=== PATIENT | female | born 1975 | race Caucasian/White ===

== ENCOUNTER 2019-04-07 11:06 | Emergency (ER) | payer OTHER, MEDICAID, SELFPAY ==
[2019-04-07 11:27] VITALS: BP 138/78; PULSE 104; RESP 22; TEMP 36.1; O2SAT 98; BMI 66.2
[2019-04-07 14:06] LABS: Add Manual Diff / Slide Review NO; Basophils Absolute Auto 0 /uL (0-100); Basophils Percent Auto 0.2 % (0-2); Eosinophils Absolute Auto 100 /uL (0-450); Eosinophils Percent Auto 0.9 % (2-4); Hematocrit 41.4 % (36-46); Hemoglobin 13.4 g/dL (12.0-16.0); Lymphocytes Absolute Auto 3200 /uL (1100-4500); Lymphocytes Percent Auto 27.9 % (25-40); Mean Corpuscular HGB Conc 32.4 % (30-36); Mean Corpuscular Hemoglobin 27.8 PG (26-34); Mean Corpuscular Volume 85.7 fL (80-100); Monocytes Absolute Auto 600 /uL (0-900); Monocytes Percent Auto 4.9 % (3-14); Neutrophils Absolute Auto 7500 /uL (1500-7000); Neutrophils Percent Auto 66.1 % (50-75); Platelet Count 347 X10^3/uL (150-400); Red Blood Cell Count 4.83 X10^6/uL (4.0-5.2); Red Cell Distribution Width 14.8 % (11.6-14.8); White Blood Cell Count 11.3 X10^3/uL (4.5-11.0)
--- NOTE | 2019-04-07 14:06 | ED.SKABFB ---
HPI - Skin/Abscess/Foreign Bdy <ABI Xiong - Last Filed: 04/07/19 22:05> General Chief complaint: Skin/Abscess/Foreign Body Stated complaint: Swollen cheek/hard lump Rt side Time Seen by Provider: 04/07/19 13:40 Source: patient Mode of arrival: ambulatory Limitations: no limitations History of Present Illness HPI narrative: The patient is a 43-year-old female nonsmoker with history of morbid obesity, hypertension and fibromyalgia presents chief complaint of right-sided facial pain. She states it has been going on for a week and she notes swelling on the right side of her mandible as well as just distal to her right ear. She denies any fevers nausea vomiting or diarrhea. She states that there is are swollen and painful. She states it feels like she has cotton underneath her skin. She does have a history of dental infections. She complains of transient ear pain, but states she has chronic sinus issues. She has taken [id number] measures for the pain including Tylenol and ibuprofen. Related Data Previous Rx's Medication Instructions Recorded ketorolac 10 mg PO Q4-6H PRN 2 Days #8 tab 04/07/19 penicillin V potassium 500 mg PO QID #40 tab 04/07/19 Allergies Allergy/AdvReac Type Severity Reaction Status Date / Time azithromycin Allergy Severe Anaphylaxis Verified 04/07/19 11:33 Review of Systems <ROBERT Xiong - Last Filed: 04/07/19 22:05> Review of Systems GENERAL: Denies chills, fatigue, malaise, fever, sweats. HEENT: See HPI RESPIRATORY: Denies dyspnea, cough, wheezing, hemoptysis, sputum. CARDIOVASCULAR: Denies chest pain, palpitations, orthopnea, edema, GASTROINTESTINAL: Denies nausea, vomiting, abdominal pain, diarrhea, constipation, melena. : Denies dysuria, frequency, incontinence, hematuria, urinary retention. MUSCULOSKELETAL: denies weakness, joint pain, or bony pain SKIN: See HPI NEUROLOGIC: Denies weakness, headache, numbness, change in speech, confusion, seizures, incoordination. PSYCHIATRIC: No concerning psychosocial issues. 12 point review of systems is negative except for those stated above PFSH <ABI Xiong - Last Filed: 04/07/19 22:05> Medical History Fibromyalgia (Acute) Hypertension (Acute) Morbidly obese (Acute) Social History Smoking Status: Never smoker Social History Smoking Status: Never smoker Exam <ABI Xiong - Last Filed: 04/07/19 22:05> Narrative Exam Narrative: GENERAL: Morbidly obese female sitting on stretcher HEAD: Atraumatic. Normocephalic. No temporal or scalp tenderness. EYES: Pupils equal round and reactive. Extraocular motions intact. No scleral icterus. No injection or drainage. ENT: Nose without bleeding, purulent drainage or septal hematoma. Throat without erythema, tonsillar hypertrophy or exudate. Uvula midline. Airway patent. Bilateral TMs pearly lindsey. No erythema over right mastoid. No pain to palpation right mastoid. Swelling erythema noted lateral come right lower jaw with pain to palpation. Multiple broken teeth noted. NECK: Trachea midline. No JVD or lymphadenopathy. Supple, nontender, no meningeal signs. Submandibular swelling noted right side. Approximately 3 cm x 4 cm. Slight overlying erythema. 2 x 1 cm area of swelling noted distal to right ear. Slight overlying erythema. CARDIOVASCULAR: Regular rate and rhythm without murmurs, gallops, or rubs. RESPIRATORY: Clear to auscultation. Breath sounds equal bilaterally. No wheezes, rales, or rhonchi. No cough. No increased respiratory effort. GASTROINTESTINAL: Abdomen soft, non-tender, nondistended. No hepato-splenomegaly, or palpable masses. No guarding. EXTREMITIES: No clubbing, cyanosis, or edema. No joint tenderness, effusion, or edema noted. BACK: Nontender without deformity or crepitance. No flank tenderness. NEURO: AOx3. SKIN: Slight erythema overlying swelling as noted above. No obvious rash or significant erythema Initial Vital Signs Initial Vital Signs: Vital Signs Temperature 97.0 F L 04/07/19 11:27 Pulse Rate 104 H 04/07/19 11:27 Respiratory Rate 22 04/07/19 11:27 Blood Pressure 138/78 04/07/19 11:27 Pulse Oximetry 98 04/07/19 11:27 <Tyra Magaña DO - Last Filed: 04/08/19 07:31> Initial Vital Signs Initial Vital Signs: Vital Signs Temperature 97.0 F L 04/07/19 11:27 Pulse Rate 104 H 04/07/19 11:27 Respiratory Rate 22 04/07/19 11:27 Blood Pressure 138/78 04/07/19 11:27 Pulse Oximetry 98 04/07/19 11:27 Course <JEANMARIE XiongP-BC - Last Filed: 04/07/19 22:05> Orders Ordered: Discontinued Medications Sodium Chloride (Normal Saline 0.9%) 1,000 mls @ 1,000 mls/hr IV BOLUS ONE Stop: 04/07/19 15:51 Last Infusion: 04/07/19 16:10 Dose: 0 mls/hr Admin: 04/07/19 14:56 Dose: 1,000 mls/hr Ketorolac Tromethamine (Toradol) 30 mg IV NOW ONE Stop: 04/07/19 16:06 Last Admin: 04/07/19 16:12 Dose: 30 mg Ondansetron HCl (Zofran) 4 mg IV NOW ONE Stop: 04/07/19 14:53 Last Admin: 04/07/19 14:56 Dose: 4 mg Vital Signs - 8 hr 04/07/19 16:38 Pulse Rate 91 H Respiratory Rate 20 Blood Pressure [Right Arm] 141/81 H Pulse Oximetry 99 <Tyra Magaña DO - Last Filed: 04/08/19 07:31> Orders Ordered: Discontinued Medications Sodium Chloride (Normal Saline 0.9%) 1,000 mls @ 1,000 mls/hr IV BOLUS ONE Stop: 04/07/19 15:51 Last Infusion: 04/07/19 16:10 Dose: 0 mls/hr Admin: 04/07/19 14:56 Dose: 1,000 mls/hr Ketorolac Tromethamine (Toradol) 30 mg IV NOW ONE Stop: 04/07/19 16:06 Last Admin: 04/07/19 16:12 Dose: 30 mg Ondansetron HCl (Zofran) 4 mg IV NOW ONE Stop: 04/07/19 14:53 Last Admin: 04/07/19 14:56 Dose: 4 mg Vital Signs - 8 hr 04/07/19 16:38 Pulse Rate 91 H Respiratory Rate 20 Blood Pressure [Right Arm] 141/81 H Pulse Oximetry 99 MDM - Skin/Abscess/Foreign Bdy <Tyra Chambers, PROGRAM MANAGEMENT PROFESSIONAL-BC - Last Filed: 04/07/19 22:05> Lab Data Result diagrams: 04/07/19 13:50 04/07/19 13:50 Lab Results 04/07/19 04/07/19 Range/Units 13:50 13:50 WBC 11.3 H (4.5-11.0) X10^3/uL RBC 4.83 (4.0-5.2) X10^6/uL Hgb 13.4 (12.0-16.0) g/dL Hct 41.4 (36-46) % MCV 85.7 (80-100) fL MCH 27.8 (26-34) PG MCHC 32.4 (30-36) % RDW 14.8 (11.6-14.8) % Plt Count 347 (150-400) X10^3/uL Neut % (Auto) 66.1 (50-75) % Lymph % (Auto) 27.9 (25-40) % [place] % (Auto) 4.9 (3-14) % Eos % (Auto) 0.9 L (2-4) % Baso % (Auto) 0.2 (0-2) % Neut # (Auto) 7500 H (1978-6367) /uL Lymph # (Auto) 3200 (6075-9995) /uL [place] # (Auto) 600 (0-900) /uL Eos # (Auto) 100 (0-450) /uL Baso # (Auto) 0 (0-100) /uL Sodium 134 L (137-145) mmol/L Potassium 4.0 (3.4-5.1) mmol/L Chloride 100 (98-107) mmol/L Carbon Dioxide 20 L (22-32) mmol/L BUN 10 (7-17) mg/dL Creatinine 0.60 (0.52-1.04) mg/dL Estimated GFR > 60.0 (>60) mL/min BUN/Creatinine Ratio 16.7 (6-22) Glucose 292 H (70-100) mg/dL Calcium 9.1 (8.4-10.2) mg/dL Point of Care Testing Test Results Negative Urine Dip Bedside Urine Glucose 250 mg/dl Bedside Urine Bilirubin - Negative Bedside Urine Ketone +/- 5 Urine Specific [place] 1.030 Bedside Urine Occult Blood +/- Bedside Urine pH 5.5 Bedside Urine Protein +/- 15 Bedside Urine Urobilinogen - Negative Bedside Urine Nitrite - Negative Bedside Urine Leukocytes - Negative Esterase Imaging Data CT soft tissue of neck: Radiologist's impression: [address] [address] [address] Scan Report Signed Patient: Adali MulliganIAR#: [id number] : 1975Acct:[id number] Age/Sex: 43 / FDate of Service: 04/07/19 Loc: ED Accession Number: [id number] Procedure: CT soft tissue neck w con Ordering Provider: Tyra Chambers-WENCESLAO PROCEDURE: CT SOFT TISSUE NECK W CON INDICATIONS: swelling, pain right face and mandible TECHNIQUE: After the administration of intravenous contrast, 3.0 mm axial sections acquired from the sella to the aortic arch. Additional oblique axial 3.0 mm sections acquired through the pharynx. 3 mm thick coronal and sagittal reformats were generated. For radiation dose reduction, the following was used: automated exposure control. COMPARISON: None. FINDINGS: Image quality: Excellent. Lymph nodes: No enlarged lymph nodes seen throughout the neck. Vessels: Visualized vasculature appears patent. Neck spaces: The oropharynx, nasopharynx, and pharynx demonstrate no mucosal lesions. The vocal cords, false vocal cords, pyriform sinuses, epiglottis, vallecula, and tongue base all appear normal. Extramucosal spaces appear unremarkable. Glands: Fatty appearance of the parotid glands bilaterally. The submandibular glands appear normal. Thyroid gland is grossly unremarkable. Miscellaneous: Visualized brain and orbits appear normal. Lung apices appear clear. There is asymmetric right perimandibular soft tissue swelling. The adjacent bone and teeth appear grossly intact. No discrete abscess Bones: No suspicious bony lesions. Bilateral maxillary sinus disease. IMPRESSION: Right perimandibular soft tissue swelling, nonspecific etiology. Recommend clinical correlation. No discrete abscess identified Dictated by: Wesley Roberts M.D. on 04/07/2019 at 15:27 Approved by: Wesley Roberts M.D. on 04/07/2019 at 15:32 [facility] Narrative Medical decision making narrative: The patient is a 43-year-old female who presents with swelling on the right side of the face. Her CT scan was inconclusive. She does not have an elevated white blood cell count is afebrile. Thus given her exam I will treat her for dental infection as she treat with penicillin. I gave her Toradol in the emergency department as well as a prescription of Toradol. Discussed not taking any further anti-inflammatories such as Aleve ibuprofen etc. Encouraged follow-up with her primary care provider as well as dentist. Patient has no questions or concerns upon discharge. Discussed return precautions of difficulty breathing, and we keep down fluids etc. <Tyra Magaña, DO - Last Filed: 04/08/19 07:31> Lab Data Lab Results 04/07/19 04/07/19 Range/Units 13:50 13:50 WBC 11.3 H (4.5-11.0) X10^3/uL RBC 4.83 (4.0-5.2) X10^6/uL Hgb 13.4 (12.0-16.0) g/dL Hct 41.4 (36-46) % MCV 85.7 (80-100) fL MCH 27.8 (26-34) PG MCHC 32.4 (30-36) % RDW 14.8 (11.6-14.8) % Plt Count 347 (150-400) X10^3/uL Neut % (Auto) 66.1 (50-75) % Lymph % (Auto) 27.9 (25-40) % [place] % (Auto) 4.9 (3-14) % Eos % (Auto) 0.9 L (2-4) % Baso % (Auto) 0.2 (0-2) % Neut # (Auto) 7500 H (9335-1382) /uL Lymph # (Auto) 3200 (9840-0482) /uL [place] # (Auto) 600 (0-900) /uL Eos # (Auto) 100 (0-450) /uL Baso # (Auto) 0 (0-100) /uL Sodium 134 L (137-145) mmol/L Potassium 4.0 (3.4-5.1) mmol/L Chloride 100 (98-107) mmol/L Carbon Dioxide 20 L (22-32) mmol/L BUN 10 (7-17) mg/dL Creatinine 0.60 (0.52-1.04) mg/dL Estimated GFR > 60.0 (>60) mL/min BUN/Creatinine Ratio 16.7 (6-22) Glucose 292 H (70-100) mg/dL Calcium 9.1 (8.4-10.2) mg/dL Point of Care Testing Test Results Negative Urine Dip Bedside Urine Glucose 250 mg/dl Bedside Urine Bilirubin - Negative Bedside Urine Ketone +/- 5 Urine Specific [place] 1.030 Bedside Urine Occult Blood +/- Bedside Urine pH 5.5 Bedside Urine Protein +/- 15 Bedside Urine Urobilinogen - Negative Bedside Urine Nitrite - Negative Bedside Urine Leukocytes - Negative Esterase Discharge Plan Departure Patient Disposition: Home Clinical Impression: Dental infection Discharge Date/Time: 04/07/19 16:50 Interventions: ED Discharge Assessment Last Done: 04/07/19 16:50 Instructions: Tooth Abscess, DI for Dental Pain Activity Restrictions/Additional Instructions: Your CT scan was nonspecific and showed generalized swelling. I am treating her for dental infection given her exam. I have also given you prescription for Toradol for pain. Do not combine this with ibuprofen Aleve or any other NSAIDs. Please follow up with her primary care provider in the next few days. Please come back to emergency department for any acute concerns such as chest pain shortness of breath concern of heart attack or stroke. Prescriptions: New penicillin V potassium 500 mg tablet 500 mg PO QID Qty: 40 RF: 0 ketorolac 10 mg tablet 10 mg PO Q4-6H PRN (Reason: pain) 2 Days Qty: 8 RF: 0 Referrals: Laurel Hurtado ARNP [Non-Staff] - <Tyra Magaña DO - Last Filed: 04/08/19 07:31> Cosign ED Attending Roydature Attestation: I was immediately available in the department for consultation, case was discussed including imaging, labs and suspected source of infection. This documentation has been reviewed and I agree with assessment and plan. Supervised by Tyra Magaña DO
[2019-04-07 14:19] LABS: BUN Creatinine Ratio 16.7 (6-22); Blood Urea Nitrogen 10 mg/dL (7-17); Calcium 9.1 mg/dL (8.4-10.2); Carbon Dioxide 20 mmol/L (22-32); Chloride 100 mmol/L (98-107); Estimated Glomerular Filt Rate > 60.0 mL/min (>60); Glucose 292 mg/dL (70-100); HEMOLYSIS < 15 (0-50); Sodium 134 mmol/L (137-145)
--- NOTE | 2019-04-07 14:52 | DI.CT.S_ITS ---
PROCEDURE: CT SOFT TISSUE NECK W CON INDICATIONS: swelling, pain right face and mandible TECHNIQUE: After the administration of intravenous contrast, 3.0 mm axial sections acquired from the sella to the aortic arch. Additional oblique axial 3.0 mm sections acquired through the pharynx. 3 mm thick coronal and sagittal reformats were generated. For radiation dose reduction, the following was used: automated exposure control. COMPARISON: None. FINDINGS: Image quality: Excellent. Lymph nodes: No enlarged lymph nodes seen throughout the neck. Vessels: Visualized vasculature appears patent. Neck spaces: The oropharynx, nasopharynx, and pharynx demonstrate no mucosal lesions. The vocal cords, false vocal cords, pyriform sinuses, epiglottis, vallecula, and tongue base all appear normal. Extramucosal spaces appear unremarkable. Glands: Fatty appearance of the parotid glands bilaterally. The submandibular glands appear normal. Thyroid gland is grossly unremarkable. Miscellaneous: Visualized brain and orbits appear normal. Lung apices appear clear. There is asymmetric right perimandibular soft tissue swelling. The adjacent bone and teeth appear grossly intact. No discrete abscess Bones: No suspicious bony lesions. Bilateral maxillary sinus disease. IMPRESSION: Right perimandibular soft tissue swelling, nonspecific etiology. Recommend clinical correlation. No discrete abscess identified Dictated by: Wesley Roberts M.D. on 04/07/2019 at 15:27 Approved by: Wesley Roberts M.D. on 04/07/2019 at 15:32
[2019-04-07] MEDS: SODIUM CHLORIDE 0.9% 1,000 ML 1000 ML IV (14:56)
[2019-04-07] MEDS: ONDANSETRON 4 MG/2 ML INJ IV (14:56)
[2019-04-07] MEDS: KETOROLAC 60 MG/2 ML VIAL 30 MG IV (16:12)
[2019-04-07 16:38] VITALS: BP 141/81; PULSE 91; RESP 20; O2SAT 99
== END 2019-04-07 16:50 | disposition home or self-care (01) ==
PROVIDERS: Emergency Medicine; Emergency Provider Nurse Practitioner Family
DX: K04.7 Periapical abscess without sinus (principal)
CPT/HCPCS: 36591; 70491; 80048; 81003; 81025; 85025; 96361; 96374; 96375; 99283; 99284; J1885; J2405; Q9967

== ENCOUNTER 2019-09-23 13:03 | Emergency (ER) | payer OTHER, MEDICAID, SELFPAY ==
[2019-09-23 13:15] VITALS: BP 174/104; PULSE 120; RESP 18; TEMP 36; O2SAT 98; BMI 56.5
--- NOTE | 2019-09-23 13:56 | ED_ITS ---
HPI - Dental/Oral <MICHELLE Hanks - Last Filed: 09/23/19 14:12> General Chief complaint: Dental/Oral Stated complaint: Toothache Time Seen by Provider: 09/23/19 13:21 Source: patient Mode of arrival: Ambulatory Limitations: no limitations History of Present Illness HPI Narrative: This is a 44-year-old female, nonsmoker, who presents with significant other with chief complain of left upper tooth pain. Patient reports known to have broken off tooth but did not have trouble up until 2 days ago with severe pain. Patient denies fever, chills, vomiting but severe nausea. Patient has been using Tylenol up to 2000 mg at a time and Motrin 400 mg 3 times a day at home for pain and states pain is not well controlled at this time. Patient denies redness, pain, swelling on affected side of face. Patient is in process to schedule a dental appointment at [facility] in [place]. Related Data Previous Rx's Medication Instructions Recorded ondansetron 4 mg PO BID-TID PRN #10 tab 09/23/19 penicillin V potassium 500 mg PO Q6H 7 Days #28 tab 09/23/19 Allergies Allergy/AdvReac Type Severity Reaction Status Date / Time azithromycin Allergy Severe Anaphylaxis Verified 09/23/19 13:15 Review of Systems <MICHELLE Hanks - Last Filed: 09/23/19 14:12> Review of Systems Narrative: General: Denies fever, chills, fatigue, malaise, sweats. HEENT: Reports dental pain on the left upper tooth for 2 days. Denies sinus pain, ear pain, sore throat, difficulty swallowing, dizziness. Respiratory: Denies dyspnea, cough, wheezing, hemoptysis, sputum. Cardiovascular: Denies chest pain, palpitations, orthopnea, edema. Gastrointestinal: Reports nausea. Denies vomiting, abdominal pain, diarrhea, constipation, melena. : Reports Denies dysuria, frequency, incontinence, hematuria, urinary retention. Musculoskeletal: Denies weakness, joint pain or bony pain. Skin: Denies rash, skin lesions, or other. Neurologic: Denies weakness, headache, numbness, change in speech, confusion, seizures, incoordination. Psychiatric: No concerning psychosocial issues. 12-point review of systems is negative except for those stated above. Patient History <MICHELLE Hanks - Last Filed: 09/23/19 14:12> Medical History Fibromyalgia (Acute) Hypertension (Acute) Morbidly obese (Acute) Social History Smoking Status: Never smoker alcohol intake frequency: holidays/special occasions only Substance Use Type: does not use Exam <MICHELLE Hanks - Last Filed: 09/23/19 14:12> Narrative Exam Narrative: General appearance: well developed, well nourished, in no acute distress. Head: normocephalic, atraumatic, no scalp lesions, non-tender. Eye: pupil equal, round. EOMI. Nose: nares patent. Oral: mucosa moist. Multiple broken tooth on L upper mouth. No significant swelling or redness to the gum. No drainage noted. Neck/Thyroid: neck supple, full range of motion, no visible masses. Skin: No erythema, edema, warm to touch on right side of face. No suspicious rashes, lesions over visible areas. Warm and dry. Heart: no clubbing, no cyanosis, no edema. Lungs: Breathing even and unlabored. No stridor. No accessory muscles used. Chest: normal shape and expansion. Abdomen: non-obese, non-distended. Neurologic: alert and oriented. Cognitive exam, [employer] and PNS grossly intact on informal exam. Psych: good eye contact, normal affect. Initial Vital Signs Initial Vital Signs: Vital Signs Temperature 96.8 F L 09/23/19 13:15 Pulse Rate 120 H 09/23/19 13:15 Respiratory Rate 18 09/23/19 13:15 Blood Pressure 174/104 H 09/23/19 13:15 Pulse Oximetry 98 09/23/19 13:15 <Tyra Magaña DO - Last Filed: 09/23/19 18:24> Initial Vital Signs Initial Vital Signs: Vital Signs Temperature 96.8 F L 09/23/19 13:15 Pulse Rate 120 H 09/23/19 13:15 Respiratory Rate 18 09/23/19 13:15 Blood Pressure 174/104 H 09/23/19 13:15 Pulse Oximetry 98 09/23/19 13:15 Course <MICHELLE Hanks - Last Filed: 09/23/19 14:12> Orders Ordered: Discontinued Medications Hydrocodone Bitart/Acetaminophen ([place] 5/325) 1 tab PO NOW ONE Stop: 09/23/19 13:47 Last Admin: 09/23/19 14:06 Dose: 1 tab Documented by: BRUCE Ondansetron HCl (Zofran Odt) 4 mg SL NOW ONE Stop: 09/23/19 13:47 Last Admin: 09/23/19 14:06 Dose: 4 mg Documented by: BRUCE Vital Signs Vital signs: Vital Signs - 8 hr 09/23/19 13:15 Temperature 96.8 F L Pulse Rate 120 H Respiratory Rate 18 Blood Pressure 174/104 H Pulse Oximetry 98 <Tyra Magaña DO - Last Filed: 09/23/19 18:24> Orders Ordered: Discontinued Medications Hydrocodone Bitart/Acetaminophen ([place] 5/325) 1 tab PO NOW ONE Stop: 09/23/19 13:47 Last Admin: 09/23/19 14:06 Dose: 1 tab Documented by: BRUCE Ondansetron HCl (Zofran Odt) 4 mg SL NOW ONE Stop: 09/23/19 13:47 Last Admin: 09/23/19 14:06 Dose: 4 mg Documented by: BRUCE Vital Signs Vital signs: Vital Signs - 8 hr 09/23/19 13:15 Temperature 96.8 F L Pulse Rate 120 H Respiratory Rate 18 Blood Pressure 174/104 H Pulse Oximetry 98 [facility] - Dental/Oral <MICHELLE Hanks - Last Filed: 09/23/19 14:12> Differential Diagnosis Differential diagnosis: Likely dental caries, toothache and fracture of tooth Medical Records Attestation: I reviewed the patient's medical records. [facility] Narrative Medical decision making narrative: This is 44-year-old female who presents to ED with left upper tooth pain for last 2 days without fever, chills, vomiting, purulent dental drainage. Patient is known to have several broken tooth in the past but there was no pain on until 2 days ago. She is in process to set up an appointment with [facility] at [place]. Patient is discharged to home with penicillin 500 mg q.i.d. dose for 7 days and advised to take [id number] Tylenol up to 4000 mg 24 hour and increased Motrin/ibuprofen up to 800 mg 3 times a day with food. Return precautions were discussed with the patient and advised to follow up with [facility] as scheduled for evaluation and treatment. Patient verbalized understanding and agrees with treatment plan. Discharge Plan Departure Patient Disposition: Home Clinical Impression: Dental infection Discharge Date/Time: 09/23/19 14:20 Instructions: Tooth Decay, DI for Dental Pain Activity Restrictions/Additional Instructions: You have been diagnosed with [dental pain likely from dental caries]. What to do: *Take your medications as directed. Please start taking antibiotic medication today complete the course of antibiotic medication. You can take up to Tylenol 4000 mg in 24hr period and Ibuproren 600-800 mg 3 times a day with food. Some people find it helpful to use [place] oil unaffected gum or tooth for pain. *Follow up with your primary care provider in 2-3 days, call for an appointment. Let them know you were seen in the ED and that we asked you to be seen in follow up. *Return to ED if you have any new, worsening, or concerning symptoms, such as [fever, spreading redness, swelling, warmth on the affected face, chest pain, breathing difficulty, unable to tolerate fluids, or any acute concerns]. Prescriptions: New ondansetron 4 mg tablet,disintegrating 4 mg PO BID-TID PRN (Reason: nausea and vomiting) Qty: 10 RF: 0 penicillin V potassium 500 mg tablet 500 mg PO Q6H 7 Days Qty: 28 RF: 0 Referrals: Davis Ferreira MD [Primary Care Provider] -
[2019-09-23] MEDS: HYDROCODONE/ACET 5/325 TABLET 1 TAB PO (14:06)
[2019-09-23] MEDS: ONDANSETRON 4 MG ODT SL (14:06)
== END 2019-09-23 14:20 | disposition home or self-care (01) ==
PROVIDERS: Emergency Provider Nurse Practitioner Family; PCP Psychiatry & Neurology Forensic Psychiatry
DX: K04.7 Periapical abscess without sinus (principal)
CPT/HCPCS: 99282; 99283

== ENCOUNTER 2021-05-16 14:44 | Emergency (ER) | payer OTHER, MEDICAID, SELFPAY ==
--- NOTE | 2021-05-16 15:08 | ED_ITS ---
HPI - Dental/Oral General Chief complaint: Dental/Oral Stated complaint: SEVERE TOOTHACHE Time Seen by Provider: 05/16/21 15:08 History of Present Illness HPI Narrative: 45-year-old woman with a history of diabetes, fibromyalgia, hypertension, hyperlipidemia presents with dental pain getting worse over the last 48 hours. She had noted that tooth number 30 had the proximal buccal cusp fractured off but had caused pain initially. Over the last 48 hours it has become increasingly sensitive to touch and increasingly painful. At this point ibuprofen and Tylenol are no longer effective. She does have a dentist but he is not available till Tuesday at the earliest and she is concerned that the pain is too severe to continue through the rest of the weekend. She does not describe significant fevers and is having no difficulty with swallowing. Related Data Previous Rx's Medication Instructions Recorded ondansetron 4 mg PO BID-TID PRN #10 tab 09/23/19 amoxicillin 500 mg PO TID #21 cap 05/16/21 oxycodone-acetaminophen 1 tab PO Q6H PRN 3 Days #10 tab 05/16/21 Allergies Allergy/AdvReac Type Severity Reaction Status Date / Time azithromycin Allergy Severe Anaphylaxis Verified 09/23/19 13:15 Review of Systems Review of Systems Narrative: Remainder of complete review of systems is otherwise unremarkable except for that included in the HPI. Patient History Medical History Diabetes Fibromyalgia Hyperlipidemia Hypertension Morbidly obese Social History Smoking Status: Never smoker Smoking Status: Never smoker alcohol intake frequency: holidays/special occasions only Substance Use Type: does not use Exam Narrative Exam Narrative: General: Alert appropriate in mild distress HEENT: Occasional dental caries are noted. Tooth number 30 has the buccal aspect fractured. There is no obvious abscess. She has some minor cervical adenopathy on the right side. Respiratory: Able to speak in full sentences, no obvious respiratory distress Skin: No obvious rashes, warm and dry Neurologic: Grossly intact no obvious asymmetries or abnormalities Psych: appropriate insight and affect, cooperative Initial Vital Signs Initial Vital Signs: Vital Signs Temperature 97.1 F L 05/16/21 15:16 Pulse Rate 102 H 05/16/21 15:16 Respiratory Rate 18 05/16/21 15:16 Blood Pressure 148/86 H 05/16/21 15:16 Pulse Oximetry 95 05/16/21 15:16 Course Orders Ordered: Discontinued Medications Ibuprofen (Ibuprofen 400 Mg Tablet) 400 mg PO NOW ONE Stop: 05/16/21 15:42 Oxycodone/Acetaminophen (Oxycodone/Acetaminophen 5/325 Tablet) 1 tab PO NOW ONE Stop: 05/16/21 15:42 Vital Signs Vital signs: Vital Signs - 8 hr 05/16/21 15:16 Temperature 97.1 F L Pulse Rate 106 H Respiratory Rate 18 Blood Pressure 148/86 H Pulse Oximetry 96 MDM - Dental/Oral Medical Records Attestation: I reviewed the patient's medical records. [facility] Narrative Medical decision making narrative: Fractured tooth with acute worsening over the last 48 hours suggesting complicating infection. She is given 10 tablets of Percocet, recommend she started amoxicillin and discussed dental wax to see if this might help mitigate the pain as well. She will schedule an appointment with her dentist for definitive treatment as soon as she is able to do so. Discharge Plan Departure Patient Disposition: Home Clinical Impression: Toothache Fracture of tooth Qualifiers: Encounter type: initial encounter Fracture type: open Qualified Code(s): S02.5XXB - Fracture of tooth (traumatic), initial encounter for open fracture Instructions: DI for Dental Pain Activity Restrictions/Additional Instructions: Thank you for coming in today Please call your dentist to schedule an appointment for definitive care of that broken tooth In the meantime, consider getting some dental wax from the drugstore and using that over the exposed area on the tooth to help reduce pain. Using 400 mg of ibuprofen (2 [id number] pills) and 1 Tylenol every 6 hours can be very helpful in controlling pain. For severe pain you can use 400 mg of ibuprofen and 1 Percocet. I am concerned that your also developing an infection and I am going to suggest that you complete of course of amoxicillin. Prescriptions: New amoxicillin 500 mg capsule 500 mg PO TID Qty: 21 RF: 0 oxycodone-acetaminophen 5-325 mg tablet 1 tab PO Q6H PRN (Reason: pain) 3 Days Qty: 10 RF: 0 No Action ondansetron 4 mg tablet,disintegrating 4 mg PO BID-TID PRN (Reason: nausea and vomiting) Qty: 10 RF: 0 Referrals: Rossy Persaud PA-C [Primary Care Provider] -
[2021-05-16 15:16] VITALS: BP 148/86; PULSE 102; PULSE 106; RESP 18; TEMP 36.2; O2SAT 95; O2SAT 96; BMI 56.1
[2021-05-16] MEDS: OXYCODONE/ACETAMINOPHEN 5/325 TABLET 1 TAB PO (15:49)
[2021-05-16] MEDS: IBUPROFEN 400 MG TABLET PO (15:49)
[2021-05-16 15:54] VITALS: BP 148/86; PULSE 78; RESP 15; O2SAT 99
== END 2021-05-16 15:57 | disposition home or self-care (01) ==
PROVIDERS: Emergency Provider Emergency Medicine; PCP Physician Assistant Medical
DX: S02.5XXB Fracture of tooth (traumatic), initial encounter for open fracture (principal)
CPT/HCPCS: 99283

== ENCOUNTER 2024-03-19 16:19 | Emergency (ER) | payer OTHER, MEDICAID, SELFPAY ==
[2024-03-19 17:04] VITALS: BP 164/105; PULSE 119; RESP 22; TEMP 36.6; O2SAT 98; BMI 53.2
[2024-03-19 17:31] LABS: Add Manual Diff / Slide Review NO; Basophils Absolute Auto 200 /uL (0-100); Basophils Percent Auto 1.4 % (0-2); Eosinophils Absolute Auto 200 /uL (0-450); Eosinophils Percent Auto 1.6 % (2-4); Hematocrit 38.8 % (36-46); Hemoglobin 12.5 g/dL (12.0-16.0); Lymphocytes Absolute Auto 3100 /uL (1100-4500); Lymphocytes Percent Auto 28.4 % (25-40); Mean Corpuscular HGB Conc 32.1 % (30-36); Mean Corpuscular Hemoglobin 24.6 PG (26-34); Mean Corpuscular Volume 76.8 fL (80-100); Monocytes Absolute Auto 400 /uL (0-900); Monocytes Percent Auto 4.1 % (3-14); Neutrophils Absolute Auto 7000 /uL (1500-7000); Neutrophils Percent Auto 64.5 % (50-75); Platelet Count 333 X10^3/uL (150-400); Red Blood Cell Count 5.06 X10^6/uL (4.0-5.2); Red Cell Distribution Width 17.3 % (11.6-14.8); White Blood Cell Count 10.9 X10^3/uL (4.5-11.0)
[2024-03-19 17:53] LABS: Alanine Aminotransferase 25 IU/L (<35); Albumin 4.3 g/dL (3.5-5.0); Albumin Globulin Ratio 1.1 (1.0-2.8); Alkaline Phosphatase 91 U/L (38-126); Aspartate Aminotransferase 28 IU/L (14-36); BUN Creatinine Ratio 26.7 (6-22); Bilirubin Total 0.6 mg/dL (0.2-1.3); Blood Urea Nitrogen 12 mg/dL (7-17); Calcium 9.5 mg/dL (8.4-10.2); Carbon Dioxide 18 mmol/L (22-32); Chloride 107 mmol/L (98-107); Estimated Glomerular Filt Rate > 60 mL/min (>60); Globulin 3.8 g/dL (1.7-4.1); Glucose 133 mg/dL (70-100); HEMOLYSIS < 15 (0-50); Lipase 66 U/L (23-300); Potassium 3.6 mmol/L (3.4-5.1); Sodium 136 mmol/L (137-145); Total Protein 8.1 g/dL (6.3-8.2)
[2024-03-19 20:50] VITALS: BP 200/115
[2024-03-19 20:51] VITALS: BP 200/115; PULSE 117; PULSE 120; RESP 22; O2SAT 100; O2SAT 98
--- NOTE | 2024-03-19 21:03 | PC.NURSE ---
pt states she has had some increase in tingling and numbness in her feet worsening over the last 30days, then it got significantly worse in the last 2 days to where she can barely walk. she is diabetic and has been told she has neuropathy but this feels different. good pedal pulses bilaterally. good cap refill bilaterally. she also c/o under rib pain bilaterally that shoots down into her hips/ low back and across her diaphragm. it is described as a intermittently dull ache with sharp shooting pain when she moves. she also states she feels like she cant take a deep breath due to the feeling of someone stepping on her chest. she endorses a history of gastroparesis, she has been OMAD for the last few weeks and has lost 10lb unintentionally. pt is crying while reporting these things to nurse. states she normally feels like she is a pretty tough person due to her constant pain from her fibromyalgia but this is just too much for her. pt up to the bathroom and willing to give urine sample. using to help steady her gait.
[2024-03-19] MEDS: KETOROLAC 30 MG/ML VIAL 15 MG IV (21:51)
[2024-03-19] MEDS: SODIUM CHLORIDE 0.9% 1,000 ML 1000 ML IV (21:52)
--- NOTE | 2024-03-19 22:00 | ED_ITS ---
HPI - General Adult General Chief complaint: Weakness Stated complaint: T-7 N/feet swollen/everything hurts Time Seen by Provider: 03/19/24 20:56 History of Present Illness HPI narrative: 48-year-old female with history of diabetes, fibromyalgia, gastroparesis, asthma presents by private vehicle from home for 1 week of multiple symptoms. Patient states that she has had worsening neuropathy in her upper and lower extremities and this has caused her to being her feet against multiple objects without realizing it. She has felt nauseous, bloated, generally unwell and this has caused her to not be able to sleep. She states she used to be on Lyrica for neuropathy but her insurance company stopped covering this medication so she has not taken it in quite some time. Blood sugars has been in the mid 200s which she reports is good for her. Related Data Home Medications Medication Instructions Recorded Confirmed atorvastatin 20 mg tablet 20 mg PO ONCE PM 03/19/24 03/19/24 empagliflozin 25 mg tablet 25 mg PO DAILY 03/19/24 03/19/24 (Jardiance) hydroxyzine pamoate 25 mg capsule 25 mg PO DAILY 03/19/24 03/19/24 insulin glargine 100 unit/mL (3 60 unit SUBCUT QPM 03/19/24 03/19/24 mL) subcutaneous pen (Basaglar KwikPen U-100 Insulin) lisinopril 20 mg tablet 20 mg PO DAILY 03/19/24 03/19/24 metformin 1,000 mg tablet 1,000 mg PO BID 03/19/24 03/19/24 montelukast 10 mg tablet 10 mg PO DAILY 03/19/24 03/19/24 pantoprazole 40 mg tablet,delayed 40 mg PO DAILY 03/19/24 03/19/24 release venlafaxine 225 mg tablet,extended 225 mg PO DAILY depressive disorder 03/19/24 03/19/24 release 24 hr Previous Rx's Medication Instructions Recorded ondansetron 4 mg disintegrating 4 mg PO BID-TID PRN nausea and 09/23/19 tablet vomiting #10 tabs gabapentin 300 mg capsule 300 mg PO TID #60 caps 03/19/24 Allergies Allergy/AdvReac Type Severity Reaction Status Date / Time azithromycin Allergy Severe Anaphylaxis Verified 03/19/24 17:11 Review of Systems Review of Systems Narrative: Negative except as noted above Patient History Medical History Diabetes Fibromyalgia Hyperlipidemia Hypertension Morbidly obese Social History Smoking Status: Never smoker Smoking Status: Never smoker alcohol intake frequency: other Substance Use Type: marijuana Exam Initial Vital Signs Initial Vital Signs: Vital Signs Temperature 98 F 03/19/24 17:04 Pulse Rate 119 H 03/19/24 17:04 Respiratory Rate 22 03/19/24 17:04 Blood Pressure 164/105 H 03/19/24 17:04 Pulse Oximetry 98 03/19/24 17:04 Oxygen Delivery Method Room Air 03/19/24 17:04 Const: Awake, alert, no acute distress Cardiac: regular rate, regular rhythm RESP: unlabored, clear bilaterally, no wheezing GI: Soft, nontender, nondistended MSK: Slight decreased sensation bilateral lower extremities pass the knee, 2+ DP pulses bilaterally Skin: Warm, Dry, intact, no rashes Neuro: AO x3, CN II-XII grossly intact, moves all extremities Course Orders Ordered: Discontinued Medications Sodium Chloride (Normal Saline 0.9%) 1,000 mls @ 1,000 mls/hr IV BOLUS ONE Stop: 03/19/24 22:38 Last Infusion: 03/19/24 23:38 Dose: Infused Documented By: Admin: 03/19/24 21:52 Dose: 1,000 mls/hr Documented By: AELKSANDR Ketorolac Tromethamine (Ketorolac 30 Mg/Ml Vial) 15 mg IV NOW ONE Stop: 03/19/24 21:40 Last Admin: 03/19/24 21:51 Dose: 15 mg Documented By: ALEKSANDR Morphine Sulfate (Morphine 4 Mg/Ml Inj) 4 mg IV NOW ONE Stop: 03/19/24 22:54 Last Admin: 03/19/24 23:16 Dose: 4 mg Documented By: ALEKSANDR Ondansetron HCl (Ondansetron 4 Mg Odt) 4 mg PO NOW PRN PRN Reason: Nausea And Vomiting Ondansetron HCl (Ondansetron 4 Mg/2 Ml Inj) 4 mg IV NOW PRN PRN Reason: Nausea And Vomiting Vital Signs Vital signs: Vital Signs - 8 hr 03/19/24 17:04 03/19/24 20:51 Temperature 98 F Pulse Rate 119 H 120 H Respiratory Rate 22 22 Blood Pressure 164/105 H 200/115 H Pulse Oximetry 98 98 Oxygen Delivery Method Room Air Room Air Medical Decision Making Lab Data 03/19/24 17:14 03/19/24 17:14 Labs: Lab Results 03/19/24 Range/Units 17:14 WBC 10.9 (4.5-11.0) X10^3/uL RBC 5.06 (4.0-5.2) X10^6/uL Hgb 12.5 (12.0-16.0) g/dL Hct 38.8 (36-46) % MCV 76.8 L (80-100) fL MCH 24.6 L (26-34) PG MCHC 32.1 (30-36) % RDW 17.3 H (11.6-14.8) % Plt Count 333 (150-400) X10^3/uL Neut % (Auto) 64.5 (50-75) % Lymph % (Auto) 28.4 (25-40) % Orange % (Auto) 4.1 (3-14) % Eos % (Auto) 1.6 L (2-4) % Baso % (Auto) 1.4 (0-2) % Neut # (Auto) 7000 (7484-9554) /uL Lymph # (Auto) 3100 (8098-0892) /uL Orange # (Auto) 400 (0-900) /uL Eos # (Auto) 200 (0-450) /uL Baso # (Auto) 200 H (0-100) /uL Sodium 136 L (137-145) mmol/L Potassium 3.6 (3.4-5.1) mmol/L Chloride 107 (98-107) mmol/L Carbon Dioxide 18 L (22-32) mmol/L BUN 12 (7-17) mg/dL Creatinine 0.45 L (0.52-1.04) mg/dL Estimated GFR > 60 (>60) mL/min BUN/Creatinine Ratio 26.7 H (6-22) Glucose 133 H (70-100) mg/dL Calcium 9.5 (8.4-10.2) mg/dL Magnesium 1.8 (1.6-2.3) mg/dL Total Bilirubin 0.6 (0.2-1.3) mg/dL AST 28 (14-36) IU/L ALT 25 (<35) IU/L Alkaline Phosphatase 91 (38-126) U/L Total Protein 8.1 (6.3-8.2) g/dL Albumin 4.3 (3.5-5.0) g/dL Globulin 3.8 (1.7-4.1) g/dL Albumin/Globulin Ratio 1.1 (1.0-2.8) Lipase 66 (23-300) U/L Point of Care Testing Test Results Negative Urine Dip Bedside Urine Glucose 1000 mg/dl Bedside Urine Bilirubin - Negative Bedside Urine Ketone - Negative Urine Specific [place] 1.025 Bedside Urine Occult Blood - Negative Bedside Urine pH 6.0 Bedside Urine Protein - Negative Bedside Urine Urobilinogen - Negative Bedside Urine Nitrite - Negative Bedside Urine Leukocytes - Negative Esterase Point of care testing: Point of Care Testing Test Results Negative Urine Dip Bedside Urine Glucose 1000 mg/dl Bedside Urine Bilirubin - Negative Bedside Urine Ketone - Negative Urine Specific [place] 1.025 Bedside Urine Occult Blood - Negative Bedside Urine pH 6.0 Bedside Urine Protein - Negative Bedside Urine Urobilinogen - Negative Bedside Urine Nitrite - Negative Bedside Urine Leukocytes - Negative Esterase MDM Narrative Medical decision making narrative: Patient presenting for 1 week of symptoms that sound consistent with worsening chronic diabetic complications. She admittedly has very poor glucose control and has already been diagnosed with neuropathy and gastroparesis. She has been unable to take her usual Lyrica due to insurance issues. Abdomen is soft, no reproducible tenderness to palpation. She has decreased sensation in her lower extremities but the limbs are warm and perfused. Laboratory work is reviewed, unremarkable. Electrolytes within normal limits. No evidence of DKA or kidney dysfunction. Patient given fluids and pain medications, I offered to try the patient back on gabapentin for her neuropathy. She states that previously gabapentin gave her headaches but she was willing to try anything at this point to help improve her neuropathy. Patient was counseled on the importance of improved glucose control to prevent worsening gastroparesis and neuropathy. Discharge Plan Departure Patient Disposition: Home Clinical Impression: Diabetic gastroparesis, Diabetic neuropathy Instructions: DI for Diabetic Neuropathy Activity Restrictions/Additional Instructions: Your laboratory work was reassuring today. Please follow up with your primary care physician. Gabapentin has been sent to the [facility] in [place] and may help your neuropathy. Maintaining good control of your diabetes is the only way to prevent your gastroparesis and neuropathy from worsening Prescriptions: New gabapentin 300 mg capsule 300 mg PO TID Qty: 60 0RF No Action ondansetron 4 mg tablet,disintegrating 4 mg PO BID-TID PRN (Reason: nausea and vomiting) Qty: 10 0RF atorvastatin 20 mg tablet 20 mg PO ONCE PM lisinopril 20 mg tablet 20 mg PO DAILY pantoprazole 40 mg tablet,delayed release (DR/EC) 40 mg PO DAILY metformin 1,000 mg tablet 1,000 mg PO BID montelukast 10 mg tablet 10 mg PO DAILY hydroxyzine pamoate 25 mg capsule 25 mg PO DAILY insulin glargine [Basaglar KwikPen U-100 Insulin] 100 unit/mL (3 mL) insulin pen 60 unit SUBCUT QPM venlafaxine 225 mg tablet extended release 24hr 225 mg PO DAILY Jardiance 25 mg tablet 25 mg PO DAILY Referrals: Rossy Persaud PA-C [Primary Care Provider] - Stand Alone Forms: Patient Portal/API
[2024-03-19 22:11] LABS: Magnesium 1.8 mg/dL (1.6-2.3)
[2024-03-19] MEDS: MORPHINE 4 MG/ML INJ IV (23:16)
[2024-03-19 23:23] VITALS: PULSE 107; O2SAT 97
[2024-03-19 23:25] VITALS: BP 158/83; PULSE 106; O2SAT 100
[2024-03-19 23:30] VITALS: PULSE 93; O2SAT 100
== END 2024-03-19 23:53 | disposition home or self-care (01) ==
PROVIDERS: Emergency Medicine; Emergency Provider Emergency Medicine; PCP Physician Assistant Medical
DX: E11.40 Type 2 diabetes mellitus with diabetic neuropathy, unspecified (principal); E11.43 Type 2 diabetes mellitus with diabetic autonomic (poly)neuropathy; K31.84 Gastroparesis; I10 Essential (primary) hypertension; Z79.4 Long term (current) use of insulin; Z79.84 Long term (current) use of oral hypoglycemic drugs
CPT/HCPCS: 36415; 80053; 81003; 81025; 83690; 83735; 85025; 93005; 96374; 96375; 99284; J1885; J2270